=== PATIENT | female | born 1945 | race Two or more races ===

== ENCOUNTER 2021-07-13 08:05 | Outpatient (CLI) | payer OTHER | END 2021-07-13 08:17 | disposition home or self-care (01) | LOC: RAD 08:05 | PROVIDERS: ATTEND Orthopaedic Surgery | DX: M79.672 Pain in left foot (principal); S92.345D Nondisplaced fracture of fourth metatarsal bone, left foot, subsequent encounter for fracture with routine healing ==

== ENCOUNTER 2021-08-27 08:12 | Outpatient (CLI) | payer OTHER | END 2021-08-27 08:16 | disposition home or self-care (01) | LOC: RAD 08:12 | PROVIDERS: ATTEND Orthopaedic Surgery | DX: S92.355D Nondisplaced fracture of fifth metatarsal bone, left foot, subsequent encounter for fracture with routine healing (principal) ==

== ENCOUNTER 2021-10-03 13:03 | Outpatient (CLI) | payer OTHER | END 2021-10-03 13:06 | disposition home or self-care (01) | LOC: RAD 13:03 | PROVIDERS: ATTEND Orthopaedic Surgery | DX: S92.355D Nondisplaced fracture of fifth metatarsal bone, left foot, subsequent encounter for fracture with routine healing (principal) ==